=== PATIENT | male | born 1990 | race Hispanic/Latino ===

== ENCOUNTER 2017-01-23 00:58 | Emergency (ER) | payer OTHER ==
[2017-01-23 01:32] VITALS: BP 139/90; PULSE 86; RESP 14; TEMP 97; O2SAT 97
[2017-01-23] MEDS ORDERED: Oxycodone/Acetaminophen 5/325 mg Tab PO STA (01:57)
--- NOTE | 2017-01-23 02:00 | ED PDOC ---
HPI: Dental Pain/Injury Time Seen by Provider: 01/23/17 01:14 Chief Complaint (Nursing): Dental Pain Chief Complaint (Provider): toothache History Per: Patient Additional Complaint(s): Patient c/o toothache x 2 days. Patient took Ibuprophin at 10pm with no relief. Past Medical History Vital Signs: Last Vital Signs Temp 97.0 F L 01/23/17 01:24 Pulse 86 01/23/17 01:24 Resp 14 01/23/17 01:24 BP 139/90 01/23/17 01:24 Pulse Ox 97 01/23/17 01:24 - Medical History PMH: Asthma - Family History Family History: States: Unknown Family Hx - Home Medications Home Medications: Ambulatory Orders Medication Instructions Recorded Ibuprofen [Motrin] 600 mg PO Q6 #20 tab 01/23/17 Penicillin VK [Penicillin VK Tab] 500 mg PO BID #14 tab 01/23/17 oxyCODONE/Acetaminophen [Percocet 1 ea PO Q6 PRN #5 tab 01/23/17 5/325 mg Tab] - Allergies Allergies/Adverse Reactions: Allergies Allergy/AdvReac Type Severity Reaction Status Date / Time No Known Allergies Allergy Verified 03/01/14 00:09 - ECG O2 Sat by Pulse Oximetry: 97 Disposition - Clinical Impression Clinical Impression: Dental caries, Toothache - Disposition Referrals: Deven Kovacs MD [Primary Care Provider] - Condition: STABLE Prescriptions: Ibuprofen [Motrin] 600 mg PO Q6 #20 tab oxyCODONE/Acetaminophen [Percocet 5/325 mg Tab] 1 ea PO Q6 PRN #5 tab PRN Reason: Pain, Severe (8-10) Penicillin VK [Penicillin VK Tab] 500 mg PO BID #14 tab Instructions: Toothache (ED), Dental Caries (ED) Forms: [facility] (Bengali)
== END 2017-01-23 03:01 | disposition home or self-care (01) ==
LOC: H.ER 00:58
DX: K08.89 Other specified disorders of teeth and supporting structures (principal)
CPT/HCPCS: 96372; 99281; J1885